=== PATIENT | female | born 1970 | race Caucasian/White ===

== ENCOUNTER 2024-01-17 10:38 | Day surgery (SDC) | payer OTHER ==
[2024-01-17 12:13] VITALS: BP 106/60; PULSE 63; RESP 12; TEMP 97.2
== END 2024-01-17 12:30 | disposition home or self-care (01) ==
LOC: FASU-ENDO 10:38
PROVIDERS: ATTEND Internal Medicine Gastroenterology
PROC: 0DJD8ZZ Inspection of Lower Intestinal Tract, Via Natural or Artificial Opening Endoscopic (ICD-10-PCS; principal; 2024-01-17 11:37)
DX: Z12.11 Encounter for screening for malignant neoplasm of colon (principal)